=== PATIENT | female | born 1985 | race Caucasian/White ===

== ENCOUNTER 2016-08-28 10:43 | Emergency (ER) | payer MEDICAID, OTHER ==
[~2016-08-28] VITALS: Wt 96.0 kg
[~2016-08-28 10:43] MED LIST: CALC-649 PO; PREN1TAB49 PO
[2016-08-28] MEDS ORDERED: D-ME473S18 PO (11:40)
[2016-08-28] MEDS ORDERED: AZIT250T94 PO (11:41)
[2016-08-28] MEDS ORDERED: SODI104S2 NASAL (11:42)
--- NOTE | 2016-08-28 11:57 | ERD ---
ER Documentation Chief Complaint Date/Time DATE: 08/28/16 TIME: 11:55 Chief Complaint COUGH, CONGESTION, BODYACHES, PT 33 WKS PG, NO CRAMPING, NO VB HPI This is a 30-year-old female that presents to the ER with a cough for the last 3 days. States that cough is dry and constant. She does complain of body pain. She denies any fevers or chills. She denies any chest pain or shortness of breath. She denies urinary frequency or dysuria. She denies any pelvic pain or vaginal bleeding. She denies any vaginal discharge. Patient last saw her OB last week and everything was normal with her . A0. ROS 12 point review of systems was done, all negative except per HPI. Medications Home Meds Active Scripts Sodium Chloride (Pender) 104 Ml [place], 1 SPRAY NASAL PRN Y for NASAL CONGESTION, #1 BOTTLE Prov:AGNES WESLEY 08/28/16 Azithromycin* (Zithromax*) 250 Mg Tablet, 250 MG PO .ZPACK DIRECTED, #6 TAB TAKE 500 MG (2 TABS) THE FIRST DAY THEN 250 MG (1 TAB) DAYS 2-5 Prov:AGNES WESLEY 08/28/16 Dextromethorphan Hb-Promethazine Hcl (Promethazine DM Syrup) 473 Ml Syrup, 10 ML PO Q6H Y for COUGH, #4 OZ Prov:AGNES WESLEY 08/28/16 Reported Medications Calcium Carbonate (Calcium) 1 Tab Tablet, 1 TAB PO DAILY 04/23/11 Vits W-Ca,Fe,Fa(<1MG) () 1 Tab Tablet, 1 TAB PO DAILY 04/23/11 Allergies Allergies: Coded Allergies: No Known Allergy (Unverified , 04/23/11) PMhx/Soc Medical and Surgical Hx: pt denies Medical Hx History of Surgery: Yes () Anesthesia Reaction: No Hx Neurological Disorder: No Hx Respiratory Disorders: No Hx Cardiac Disorders: No Hx Psychiatric Problems: No Hx Miscellaneous Medical Probl: Yes (33 wks ) Hx Alcohol Use: No Hx Substance Use: No Hx Tobacco Use: No Smoking Status: Never smoker Physical Exam Vitals Vital Signs Date Time Temp Pulse Resp B/P Pulse Ox O2 Delivery O2 Flow Rate FiO2 08/28/16 10:49 97.7 93 17 112/69 96 Physical Exam GENERAL: The patient is well-developed, well-nourished, in no acute distress. NECK: Cervical spine is non tender with no step off. Supple, no nuchal rigidity HEENT: Atraumatic. Pupils equal, round and reactive to light. Extraocular muscles are grossly intact. Conjunctivae pink, no discharge. Bilateral tympanic membranes are clear with no evidence of erythema, effusion or dulling of the light reflex. Tonsilar erythema with no exudates or uvular deviation. Clear rhinorrhea. RESPIRATORY: Clear to auscultation bilaterally. There are no rales, wheezes or rhonchi. HEART: Regular rate and rhythm. No murmurs, clicks, rubs or gallops. EXTREMITIES: No clubbing or cyanosis. Full range of motion. Grossly neurovascularly intact. NEUROLOGIC: Alert and oriented. Cranial nerves II through XII are intact. SKIN: There is no rash. The skin is warm and dry. Procedures/MDM Differential diagnosis includes but is not limited to; Viral URI, allergic rhinitis, bronchitis, pertussis,pneumonia. This is likely viral in etiology, patient will be given a prescription for azithromycin ONLY TO BE TAKEN IF SYMPTOMS LAST LONGER THAN A WEEK. She was given promethazine and nasal saline drops for symptomatic control. Patient does not have any symptoms that would be concerning for complications. I do not believe that ultrasound is needed at this time. Clinical suspicion for pneumonia is low as patient appears well, is not hypoxic or in any respiratory distress. Additionally, patients physical examination is benign. Plan was discussed with patient they understand and agree. Patient needs to follow up with PCP in 1-2 days or return to ER sooner if symptoms worsen. Departure Diagnosis: Primary Impression: Upper respiratory infection Condition: Stable Patient Instructions: Preventing Common Respiratory Infections Referrals: JENNA ROJAS MD (PCP) Additional Instructions: Call your primary care doctor TOMORROW for an appointment during the next 1-2 days.See the doctor sooner or return here if your condition worsens before your appointment time. AGNES WESLEY Aug 28, 2016 11:57
== END 2016-08-28 12:02 | disposition home or self-care (01) ==
LOC: FTE 10:43
DX: O99.513 Diseases of the respiratory system complicating pregnancy, third trimester (principal); J06.9 Acute upper respiratory infection, unspecified; Z3A.33 33 weeks gestation of pregnancy
CPT/HCPCS: 99284